=== PATIENT | female | born 1935 | race African-American/Black ===

== ENCOUNTER 2017-09-05 08:57 | Observation (INO) | payer MEDICARE, MEDICAID ==
[2017-09-05 09:13] LABS: #Basophils 0.1 thou/uL (0.0-0.2); #Eosinphils 0.3 thou/uL (0.0-0.7); #Lymphocytes 1.5 thou/uL (1.20-3.40); #Monocytes 0.7 thou/uL (0.11-0.59); %Basophils 1.2 % (0.0-1.0); %Eosinophils 3.9 % (0.0-10.0); %Lymphocytes 19.3 % (21.0-51.0); %Neutrophils 66.5 % (42.0-75.0); Hemoglobin 10.9 g/dL (12.0-16.0); Mean Corpuscular HGB CONC 31.8 g/dL (32.0-36.0); Mean Corpuscular Hemoglobin 25.6 pg (27.0-31.0); Mean Corpuscular Volume 80.4 fl (81.0-99.0); Mean Platelet Volume 8.5 fL (7.4-10.4); Platelet Count 327 thou/uL (130-400); RBC Distribution Width 14.4 % (11.5-14.5); Red Blood Cell (RBC) Count 4.28 mill/uL (4.20-5.40); White Blood Cell (WBC) Count 7.5 thou/uL (4.8-10.8)
[2017-09-05 09:36] LABS: ALT (SGPT) 11 U/L (8-55); AST (SGOT) 26 U/L (5-34); Albumin 3.9 g/dL (3.4-4.8); Alkaline Phosphatase 82 U/L (40-150); Anion Gap 10 mmol/L (10-20); BUN (Urea Nitrogen) 22 mg/dL (9.8-20.1); Bilirubin, Total 0.3 mg/dL (0.2-1.2); Calc. Creatinine Clearance 0 mL/min (70-130); Calcium 9.1 mg/dL (7.8-10.44); Carbon Dioxide 28 mmol/L (23-31); Chloride 104 mmol/L (98-107); Estimated GFR-MDRD 58; Globulin 3.7 g/dL (2.4-3.5); Glucose 91 mg/dL (83-110); Potassium 3.9 mmol/L (3.5-5.1); Protein, Total 7.6 g/dL (6.0-8.3); Sodium 138 mmol/L (136-145)
[2017-09-05 09:45] LABS: CKMB 1.2 ng/mL (0-6.6)
[2017-09-05] MEDS ORDERED: Nitroglycerin 2% Ointment 1 INCH/1 GM Packet ONE (10:23)
[2017-09-05] MEDS ORDERED: Morphine 4 MG/ML VIAL ONE (10:50)
[2017-09-05] MEDS ORDERED: ISOVUE-370 76%-LOCM 1 ML ONE (11:02)
--- NOTE | 2017-09-05 11:21 | RAD ---
CHEST 1 VIEW: Date: 09/05/17 HISTORY: Left-sided chest pain. COMPARISON: Chest radiograph dated 07/11/16. FINDINGS: Mild blunting left lateral costophrenic sulcus and right lateral costophrenic sulcus. Heart size uppe r limits of normal. There is dilatation of the pulmonary arteries. Mild tortuosity of the aorta. Dual lead pacer is in place. Lungs are slightly hyperinflated. IMPRESSION: 1. Mild blunting left lateral costophrenic sulcus likely sequelae of scarring given no significant c hange. 2. Mild pulmonary arterial hypertension. 3. Calcified granulomas. POS: [facility]
[2017-09-05] MEDS ORDERED: diphenhydrAMINE 50 MG/ML VIAL ONE (12:20)
[2017-09-05] MEDS ORDERED: methylPREDNISolone Sod Succ/PF 125 MG/2 ML VIAL ONE (12:21)
[2017-09-05] MEDS ORDERED: Famotidine/PF 20 mg/2ml Vial SLOW IVP SCH (12:30)
[2017-09-05 12:33] LABS: Troponin I 0.013 ng/mL (< 0.028)
[2017-09-05] MEDS ORDERED: Ondansetron HCl/PF 4 MG/2 ML Vial IVP PRN (14:32)
[2017-09-05] MEDS ORDERED: Ondansetron ODT 4 MG TAB SL PRN (14:32)
[2017-09-05 14:47] VITALS: BMI 21.9
--- NOTE | 2017-09-05 15:01 | CT ---
CT PULMONARY ANGIOGRAM CHEST INCLUDING 3D RENDERING: Date: 09/05/17 HISTORY: 82-year-old female with history of primarily left-sided chest pain. COMPARISON: Abdomen CT scan dated 05/09/15. FINDINGS: No significant CT evidence for acute pulmonary embolism. Mild dilatation of the right and left and ma in pulmonary arteries. Diffuse atherosclerotic changes of the aorta with three vessel coronary artery calcific disease. Linear parenchymal changes, evidence for scarring involving primarily the right up per lobe, left lower lobe, and less so the right lower lobe and right middle lobe and lingula. Eviden ce for chronic change with some minimal left lower lobe associated bronchiectasis. Postop midline kieran rnotomy and left ICD. Circumscribed linear calcific focus within the superior spleen, as well as mult iple low attenuation foci within the spleen, up to 3.4 cm in size, stable from the prior abdomen CT s can. No pleural effusion or pericardial effusion. IMPRESSION: No CT evidence for significant acute PE. Chronic lung changes bilaterally. No pleural effusion or per icardial effusion. Atherosclerotic changes of the aorta without focal aneurysm. Stable findings in th e spleen. POS: [facility]
[2017-09-05 16:25] LABS: Troponin I 0.011 ng/mL (< 0.028)
[2017-09-05] MEDS ORDERED: predniSONE 20 MG TAB PO SCH (20:15)
[2017-09-05] MEDS ORDERED: Cyclobenzaprine 10 MG TAB PO SCH (21:00)
[2017-09-05] MEDS ORDERED: Simvastatin 20 MG TAB PO SCH (21:00)
[2017-09-05] MEDS ORDERED: Prevnar 13-Val Conj/PF 0.5 ML SYRINGE IM ONE (21:00)
[2017-09-05] MEDS: HYDROcodone/Acetaminophen 10/325 mg Tablet PO PRN (22:20)
[2017-09-05] MEDS: hydrALAZINE 25 MG TAB PO SCH (22:22)
--- NOTE | 2017-09-06 00:32 | HP ---
DATE OF ADMISSION: 09/05/2017 CHIEF COMPLAINT: Chest pain. HISTORY OF PRESENT ILLNESS: This is an 82-year-old black female, patient of Dr. Suresh Doss, who c boni to the emergency room with chest pain that started about 0300 hours this morning. She describes the pain as a sharp pain on the left side of her chest that gets worse with a deep breath and goes in to her neck and shoulder. She has a significant history of heart disease with acute MIs and a pacema ker. Worked up in the ER and checked for PEs and did not find anything, so they put her in the [facility] for further workup of the chest pain. PAST MEDICAL HISTORY: Positive for atherosclerotic coronary vascular disease. She has had a third-d egree AV block, had a pacemaker. She has a history of peripheral vascular disease, hypertension, hyp erlipidemia, significant arthritis, degenerative joint disease, and degenerative disk disease. PAST SURGICAL HISTORY: She has had a CABG x5. Prior to that, she has had coronary stents more than 10 years ago. She also has a history of pacemaker. She has had a lumbar disk repair and a left hand surgery. ALLERGIES: CONTRAST DYE. MEDICATIONS: Aspirin 81 mg a day, Pletal 100 mg twice a day, Lasix 40 mg a day, hydralazine 25 mg t. i.d., [place] 10/325 q.6 hours p.r.n., lisinopril 20 mg a day, metoprolol 25 mg a day, simvastatin 20 m g a day. FAMILY HISTORY: Noncontributory. SOCIAL HISTORY: She is a , lives with her significant other. Has 4 living children. She had 1 1 children in total. She is a former smoker. She had a 15-pack history and she stopped smoking abou t 15 or 16 years ago. She denies any alcohol intake. No other illicit or toxic habits. REVIEW OF SYSTEMS: Denies any headache or visual changes. No troubles chewing or swallowing. She d oes think she might have some type of viral disease several days ago to a week ago, because she did h ave some swollen lymph nodes in the back of her neck and a runny nose. She has had [id number]-[id number] cough for a few weeks. She denies any hemoptysis. She denies any shortness of breath. It does hurt to take a deep breath. She denies any nausea or vomiting. Denies any changes in bowel or bladder h abits. No dysuria or hematuria. Denies any paresis or paresthesias. Denies any seizure activity. Denies any homicidal or suicidal ideations. Denies any auditory or visual hallucinations. PHYSICAL EXAMINATION: VITAL SIGNS: Temperature is 97.8, pulse 82, respirations 18, saturating 93% on room, blood pressure is 177/78. HEENT: Normocephalic, atraumatic cranium. Pupils are equal, round, reactive to light and accommodat ion. Extraocular movements are intact. Mucous membranes are moist. NECK: Supple. No JVD, no bruits, no thyromegaly. There are few posterior shotty lymph nodes. LUNGS: Clear to auscultation bilaterally. Anterior to left side of chest, the ribs are tender to pa lpation along the costochondral junction, as well as the sternochondral junctions. There is also sig nificant pain with inspiration. HEART: S1, S2 with no rubs, murmurs, or gallops. ABDOMEN: Soft, nontender, nondistended. GENITOURINARY: Deferred. EXTREMITIES: Good palpable pulses x4. No cyanosis, clubbing, or edema. LABORATORY AND X-RAY FINDINGS: White count 7.5, H&H are 10.9 and 34, platelets of 327,000. Chemistr ies showed sodium 138, potassium 3.9, chloride 104, bicarbonate 28, BUN is 22, creatinine is 1.1, glu cose 91. Troponins have been 0.1, 0.13, 0.11 in the 3 consecutive draws. The CK-MB was 1.2. Chest x-ray essentially was negative. CT angio was done showing no PE and no effusions. ASSESSMENT: Chest pain with a significant history of coronary artery disease. This could be possibl e severe costochondritis with little pleurisy. PLAN: I am going to start her on low-dose prednisone tonight and will see how well that goes in the morning. We will continue rest of the chest pain protocol.
[2017-09-06] MEDS: HYDROcodone/Acetaminophen 10/325 mg Tablet PO PRN ×3 (05:24→15:42)
[2017-09-06] MEDS: hydrALAZINE 25 MG TAB PO SCH ×2 (06:24→15:41)
[2017-09-06] MEDS: Cilostazol 100 MG TAB PO SCH ×2 (06:24→15:41)
[2017-09-06] MEDS ORDERED: Furosemide 40 MG TAB PO SCH (09:00)
[2017-09-06] MEDS ORDERED: Lisinopril 20 MG TAB PO SCH (09:00)
[2017-09-06] MEDS ORDERED: predniSONE 20 MG TAB PO SCH (10:00)
--- NOTE | 2017-09-06 10:25 | PRG ---
DATE OF SERVICE: 09/06/2017 SUBJECTIVE: Ms. Kaplan is resting comfortably today. She reports she is still having some chest p ain, arm pain. The patient not able to lift her arm above her head. She has significant history of atherosclerotic coronary artery disease. She is also status post pacemaker placement. She does report today that her pain is feeling better. PHYSICAL EXAMINATION: VITAL SIGNS: Blood pressure is 199/84, pulse 87, temperature 98.6. GENERAL: She is alert, active, in no distress. LUNGS: Reveal bilateral breath sounds. HEART: Reveals a regular rate and rhythm without murmur, gallops or rubs. LABORATORY DATA: Cardiac enzymes are negative x3. IMAGING: Review of CT scan of the chest shows no evidence of acute findings on CT scan of the chest. IMPRESSION: Left-sided chest pain of unknown etiology certainly appearing musculoskeletal. PLAN: I would like to have Cardiology look at her today to see if there is any further workup that w ill include or whether they will continue on the current prednisone that she is taking. If she is stable, she might be able to be discharged later today.
[2017-09-06 11:30] VITALS: BP 173/81; TEMP 98.4
--- NOTE | 2017-09-06 13:01 | CON ---
DATE OF CONSULTATION: 09/06/2017 PRIMARY CARE PHYSICIAN: Dr. Suresh Doss EXTRACTOR PLANT OPERATOR: Dr. April Marcelo REFERRING DOCTOR: Dr. Michael Dobson REASON FOR CARDIOLOGY CONSULTATION: Chest pain, previous history of CABG and pacemaker placement. HISTORY: Ms. Kaplan is a very pleasant 81year- old female with a significant hist ory of hypertension and pacemaker placement, coronary artery disease with a CABG x5 in 2006. An ex-s moker. The patient presented to the emergency department for severe chest pain. The patient has a h istory of bronchitis and worsening of allergies since last week with continuous severe cough last wee k. Yesterday, she noticed that she cannot take a deep breath because of the coughing and the pain to the left chest which radiated to the left side of that lateral side on the left torso and the left s houlder to the left forearm. She described the pain as sharp and increases when she moves or takes a deep breath. If she does move she has normal breathing. She does not have any pain at the site exc ept the left shoulder. She denies dizziness, lightheadedness, nausea, vomiting or any other cardiac complaints during that episode. Her troponin level has been within the normal range. A 12-lead EKG has not shown any ST segment change or T-wave inversion. She has chronic, but intermittent abdomen a nd back pain for 25 years. A couple of weeks ago, she noticed ____ knot to the lower abdomen, which was not seen today, but however, she did not seek any professional health care otherwise at that time because she has had several tests for the symptom with abdominal pain for a couple of years; however , they have not found any abnormality seen. Patient has a history of coronary artery disease with CABG x5 in 01/2007. The catheterization in 2015 shows EF of 40%, diffuse diseased vessel in the RCA, sequential 80% lesion in the RCA, 100% occl uded after first diagonal, 90% occlusion in the first diagonal and MORELOS to LAD is patent, intermitten t ramus occlude and sequential 90% lesion in the circumflex and 100% occluded in the OM1 and patent g raft of the SVG to IR and SVG to OM, 100% occlusion in the SVG to RCA and SVG to diagonal. The patie nt had a pacemaker placement in 2015. Last pacemaker interrogation was done in 09/2016 show normal 3 fold impedance programmed DDDR. Last echocardiogram was done in 2016, which shows EF of 40-45%, mod erate aortic valve insufficiency, moderate mitral valve regurgitation, moderate tricuspid regurgitati on, pulmonary hypertension with a right ventricular systolic pressure in the 52 mmHg plus SVT. PAST MEDICAL HISTORY: 1. Coronary artery disease with a CABG x5, but no stent. 2. Hypertension. 3. Pacemaker placement for third-degree AV block. 4. Hyperlipidemia. 5. Chronic back pain with a significant degenerative joint disease. PAST SURGICAL HISTORY: CABG x5 in 2006, pacemaker placement in 2016. Lumbar surgery, left hand surg maria de jesus, and carpal tunnel repair to the left wrist and the right femoral popliteal bypass. FAMILY HISTORY: The patient's mother has a history of diabetes and disease due to the breast cancer, the patient's sister has a history of heart disease. One of the patient's sister due to ov boubacar cancer. The patient's son had a stroke last year. Father's history is unknown. SOCIAL HISTORY: She is a and she lives with her significant others. She had 11 children total , but only 3 children, lives at this moment. The patient is an ex-smoker. She quit in 1999. She de nied any alcohol or illicit drug abuse. ALLERGIES: She IODINE. REVIEW OF SYSTEMS: The patient's review of systems negative, unless otherwise mentioned in the HPI o r below. CONSTITUTIONAL: The patient was alert, oriented x4. Negative weight gain or loss, fever. EYES: Negative vision change, double vision. ENT: Negative for hearing loss, dysphagia, lost appetite or dental difficulty, dentures, obstruction or nasal bleeding. RESPIRATORY: Negative for snoring and hemoptysis, but positive for chronic cough. CARDIOVASCULAR: Negative for diaphoresis, orthopnea, palpitations, syncope. GASTROINTESTINAL: The patient negative for nausea, reflux, bleeding or abnormal bowels, constipation or diarrhea. GENITOURINARY: Negative hematuria. No nocturia, unusual color of urine. MUSCULOSKELETAL: Negative for claudication, edema. NEUROLOGIC: Negative for dizziness, memory loss, or seizure. PSYCHIATRIC: Negative for depression or hallucinations. SKIN: No rash or bruise. MUSCULOSKELETAL: Positive for joint pain, myalgia. PHYSICAL EXAMINATION: VITAL SIGNS: Blood pressure was 167/75, pulse is 81 intermediate A pacing with PVCs or PACs, heart r ate 70s-90s, temperature 98.3, respiration rate 16, O2 sats 94-96% on room air. GENERAL: The patient is alert, oriented x4, in no acute distress. HEAD: Normocephalic, atraumatic. EYES: Extraocular muscle movement intact. ENT: Oral and nasal mucosa are moist without lesion. NECK: Supple and no JVD, normal range of motion. LUNGS: Clear to auscultation bilaterally, but diminished at the bases. CARDIOVASCULAR: Irregularly irregular, normal S1, S2. There are no S3 or S4, no rubs or murmurs not ed. ABDOMEN: Soft and nontender or mass palpated. EXTREMITIES: Able to move all extremities and there are 2+ pulses in the bilateral lower extremities . No cyanosis, clubbing, edema noted. SKIN: No rash, bruise or lesion noted. ASSESSMENT AND PLAN: 1. Atypical chest pain. The patient's troponin level is within the normal range. The patient's 12 lead EKG showed no ST segment change or T-wave inversion. The patient reports that the chest pain, i ncreased with movement or cough, but no chest pain without movement. She also said the pain medicati on improved with her chest pain. We would like to continue to monitor. However, I believe she does not need any further cardiac workup at this moment. I would like to discuss with Dr. Marcelo for the ivan vo's further evaluation. 2. Hypertension. The patient's blood pressure has been elevated during this admission. The patient 's metoprolol was increased from 25 to 50 mg once a day to manage blood pressure. We would like to c john to monitor. 3. Coronary artery disease with a history of a CABG x5 in 2006. The patient's condition is stable a t this moment, we would like to continue to monitor. 4. Pacemaker placement in 2015. Last interrogation in October 2016 showing normal result, we would lik e to continue to monitor on the telemetry. 5. Hyperlipidemia. The patient on the study at this moment, we would like to continue. 6. Chronic cough due to the bronchitis. She is on the prednisone at this moment, which is managed b y the patient's primary care doctor. Thank you for allowing the Cardiology Service to participate in the care of this patient. We will fo llow along with the patient's care team and make recommendations as appropriate.
--- NOTE | 2017-09-06 13:22 | PRG ---
DATE OF SERVICE: 09/06/2017 Ms. Kaplan was admitted yesterday due to some chest pain. She has previous history of atherosclero tic coronary disease as well as pacemaker. During her hospitalization, her troponins have remained n ormal. She reports that her chest pain is reproduced by lifting her left arm above her head. She aviles s not noted any significant coughing today, although she noted a cough a few days ago. PHYSICAL EXAMINATION: VITAL SIGNS: Temperature 98.4, BP 173/81. LUNGS: Clear. HEART: Reveals no murmur at this time. EXTREMITIES: No clubbing, edema or cyanosis. LABORATORY DATA: Hemoglobin is 10.9, hematocrit 34.4. Troponins are negative x3. EKG shows no evid ence of any acute ST segment T-wave changes associated with injury. Chest x-ray, CT angio of the farrah st was normal. IMPRESSION: This patient appears to have atypical chest pain. She has been seen by the nurse abundio mckeon in Cardiology. I feel like she can be discharged home on her home medicines. We will wait fo r Cardiology to get final discharge recommendations.
--- NOTE | 2017-09-06 14:07 | ER ---
DATE OF CONSULTATION: 09/06/2017 INDICATION FOR CONSULTATION: An 81-year-old female with history of known coronary artery disease, st atus post bypass surgery with recent pneumonia, bronchitis with chest pain, somewhat atypical. We we re asked to see her for her chest discomfort. Please refer the notes already dictated by the nurse kimo Wallace. We have discussed the patient, I reviewed the records and would agree with her as sessment and plan. This is a very pleasant 82-year-old female who has undergone bypass surgery in the past. She underwe nt a cardiac catheterization last year and was found to have one graft occluded, but the other grafts remain patent. She had a totally occluded right coronary graft and I believe the right coronary art maria de jesus was also subtotal if not completely occluded. Other than that she has been doing quite well from the bypass and she has not been having any recent chest discomfort. She was seen in the office last year, 09/2016 and she has had no chest pain at that time. She did have a pacemaker put in also in t he past and at the time of the last pacemaker evaluation, the pacemaker check was normal. She was pa cing in the ventricle less than 10% of the time and in also in the atrium about 10% of the time and s he has had a few episodes of high atrial rate. Otherwise, she has been doing quite well. At this ti me she presented with this atypical chest pain after she had bouts of coughing. Her EKG is unremarka ble for any acute evidence of ischemia. Her cardiac enzymes are unremarkable. It is felt that this is a noncardiac chest discomfort and specifically it did improve after she has been given some medica l management. She said the pain was present. every time she had a deep breath, otherwise she did no t have any significant discomfort. She has been given muscle relaxants, steroids and hydrocodone for the discomfort and she seems to be in very good control when she takes a deep breath at this time. As far as cardiac, it does not appear to be cardiac in nature. PAST MEDICAL HISTORY/SOCIAL HISTORY/REVIEW OF SYSTEMS/ MEDICATIONS/ALLERGIES: Please refer the notes already dictated by the nurse practitioner. PHYSICAL EXAMINATION: GENERAL: Reveals a very pleasant, elderly female who is in no acute distress. VITAL SIGNS: Blood pressure is elevated 167/75. She is afebrile, respiratory rate 16, heart rate is 80 and regular. HEENT: Shows the head to be normocephalic, atraumatic. Carotid pulses are present. NECK: There were no significant bruits. CHEST: Clear to auscultation. There were no rales, rhonchi or wheezing that I can determine at this time. CARDIOVASCULAR: Reveals a regular rate and rhythm, normal S1, S2. There were no significant murmurs , heaves, thrills or rubs. She does have bilateral femoral bruits noted and she does have decreased popliteal and pedal pulses. ABDOMEN: Soft and nontender. Positive bowel sounds are present. EXTREMITIES: Show no clubbing, cyanosis or edema. Pedal pulses are present. She has well-healed mi dline surgical incision after median sternotomy. NEUROLOGIC: She appears to be intact. She does have evidence of arthritis. IMPRESSION: 1. Atypical chest pain in a female who has history of known coronary artery disease, but this appear s to be stable at this time. 2. Recent bronchitis. She will need medications to continue for her coughing, most likely the stero ids and antibiotics will be helpful as well as the muscle relaxants. 3. Otherwise, from a cardiac standpoint, she does have dyslipidemia and she will continue her medica tions. 4. She has hypertension. We may need to address her medications. This can be dealt with as an outp atient. 5. She also has a history of peripheral vascular disease and has undergone vascular evaluations in t he past, but this appears to be stable. I would be more than happy to continue to follow the patient with you, but at this time from a cardia c standpoint, she appears to be stable. I have reviewed her medications and I would continue presen t medications at this time. From a cardiac standpoint, the patient could be discharged home and I will see her back in the office in the next few weeks.
== END 2017-09-06 15:52 | disposition home or self-care (01) ==
LOC: ERS 08:57 → 2SW 14:26
PROVIDERS: ADMIT Family Medicine; ATTEND Family Medicine
DX: R07.89 Other chest pain (principal); I25.2 Old myocardial infarction; I25.10 Atherosclerotic heart disease of native coronary artery without angina pectoris; I44.2 Atrioventricular block, complete; I73.9 Peripheral vascular disease, unspecified; I10 Essential (primary) hypertension; E78.5 Hyperlipidemia, unspecified; M19.90 Unspecified osteoarthritis, unspecified site; J40 Bronchitis, not specified as acute or chronic; Z87.891 Personal history of nicotine dependence; Z79.82 Long term (current) use of aspirin; Z79.899 Other long term (current) drug therapy; Z91.041 Radiographic dye allergy status; Z95.1 Presence of aortocoronary bypass graft; Z95.0 Presence of cardiac pacemaker
CPT/HCPCS: 71045; 71275; 80053; 82550; 82553; 84484 ×2; 85025; 90670; 93005; 96374; 96375; 99285; G0009; G0378; 36415; 90471; J1200; J2270; J2930; J7506; S0028

== ENCOUNTER 2018-01-22 08:24 | Outpatient (CLI) | payer MEDICARE, MEDICAID ==
--- NOTE | 2018-01-22 10:24 | CT ---
CT ABDOMEN AND PELVIS PERFOREMD WITH INTRAVENOUS CONTRAST ENHANCEMENT: HISTORY: Lower abdominal pain. Weight loss. Evaluation for diverticulitis. COMPARISON: Study from 01/02/2013. Review is also made of a 05/09/2015 exam. FINDINGS: ABDOMEN: The lung bases show some chronic, more emphysematous type change. Postop sternotomy change s are noted. The liver shows no focal abnormalities. The spleen is stable in appearance with a dense calcificatio n and multiple cystic appearing lesions. The pancreas is atrophic. The gallbladder is normal in sage earance. The right and left adrenal glands are normal. The right and left kidneys are normal in size and not obstructed. Fairly extensive vascular calcification associated with both kidneys. I believe all the calcifications are related to vascular rather than being renal calculi. There is no significant per iaortic or mesenteric adenopathy. PELVIS: There is colonic diverticulosis. This is most severe in the descending and sigmoid colon re gion. I do not see any definite inflammatory process. There is no significant pelvic lymphadenopath y or mass. Postoperative changes of the spine are present. Fairly extensive vascular calcifications are noted. IMPRESSION: 1. Moderately severe diverticulosis of the descending and sigmoid colon, without definite signs of d iverticulitis. 2. Extensive vascular calcification. 3. Overall, fairly stable examination as compared to the prior study. POS: [facility]
[2018-01-22] MEDS ORDERED: Iopamidol 370 76% 100 ML VIAL ONE (12:51)
== END 2018-01-22 08:25 | disposition home or self-care (01) ==
LOC: CT 08:24
PROVIDERS: ATTEND Family Medicine
DX: K57.92 Diverticulitis of intestine, part unspecified, without perforation or abscess without bleeding (principal); K57.30 Diverticulosis of large intestine without perforation or abscess without bleeding; N28.89 Other specified disorders of kidney and ureter
CPT/HCPCS: 74177

== ENCOUNTER 2018-09-03 11:40 | Emergency (ER) | payer MEDICARE, MEDICAID ==
[2018-09-03] MEDS ORDERED: ISOVUE-370 76%-LOCM 1 ML ONE (11:47)
[2018-09-03 13:05] LABS: #Basophils 0.1 thou/uL (0.0-0.2); #Eosinphils 0.1 thou/uL (0.0-0.7); #Lymphocytes 1.5 thou/uL (1.20-3.40); #Monocytes 0.5 thou/uL (0.11-0.59); %Basophils 1.3 % (0.0-1.0); %Eosinophils 1.9 % (0.0-10.0); %Lymphocytes 29.2 % (21.0-51.0); %Monocytes 9.4 % (0.0-10.0); %Neutrophils 58.1 % (42.0-75.0); Hemoglobin 11.7 g/dL (12.0-16.0); Mean Corpuscular HGB CONC 32.6 g/dL (32.0-36.0); Mean Corpuscular Hemoglobin 26.1 pg (27.0-31.0); Mean Platelet Volume 8.2 fL (7.4-10.4); Platelet Count 279 thou/uL (130-400); RBC Distribution Width 13.4 % (11.5-14.5); Red Blood Cell (RBC) Count 4.48 mill/uL (4.20-5.40); White Blood Cell (WBC) Count 5.2 thou/uL (4.8-10.8)
[2018-09-03 13:27] LABS: ALT (SGPT) 15 U/L (8-55); AST (SGOT) 21 U/L (5-34); Albumin 4.3 g/dL (3.4-4.8); Alkaline Phosphatase 78 U/L (40-150); Anion Gap 13 mmol/L (10-20); BUN (Urea Nitrogen) 19 mg/dL (9.8-20.1); Bilirubin, Total 0.6 mg/dL (0.2-1.2); Calc. Creatinine Clearance 0 mL/min (70-130); Calcium 9.9 mg/dL (7.8-10.44); Carbon Dioxide 26 mmol/L (23-31); Chloride 105 mmol/L (98-107); Estimated GFR-MDRD 48; Globulin 3.3 g/dL (2.4-3.5); Glucose 86 mg/dL (83-110); Potassium 3.4 mmol/L (3.5-5.1); Protein, Total 7.6 g/dL (6.0-8.3); Sodium 141 mmol/L (136-145)
[2018-09-03] MEDS ORDERED: diphenhydrAMINE 50 MG/ML VIAL ONE (14:36)
[2018-09-03] MEDS ORDERED: Famotidine/PF 20 mg/2ml Vial ONE (14:36)
[2018-09-03] MEDS ORDERED: methylPREDNISolone Sod Succ/PF 125 MG/2 ML VIAL ONE (14:36)
[2018-09-03 14:53] LABS: Bilirubin Small (Negative); Blood, Urine Negative (Negative); Clarity CLEAR (Clear); Glucose, Urine (Dipstick) Negative (Negative); Leukocyte Small (Negative); Nitrite Negative (Negative); Protein, Urine (Dipstick) Negative (Neg-Trace); Specific Gravity, Urine 1.026 (1.002-1.036); pH, Urine 5.5 (5.0-9.0)
[2018-09-03 14:54] LABS: Bacteria/HPF 1+ HPF (None Seen); RBC/HPF 0-3 HPF (0-3)
[2018-09-03 14:58] LABS: Pathc Cast-AUWi Flag 2.99 (0-2.49)
[2018-09-03 15:06] LABS: Hyaline Casts/LPF 0-3 HYALINE CAST LPF (0-3 Hyaline); Other Casts/LPF None Seen LPF (0-3 Hyaline)
[2018-09-03] MEDS ORDERED: Labetalol HCl 100 MG/20 ML VIAL ONE (16:18)
--- NOTE | 2018-09-03 17:40 | CT ---
Contrast-enhanced images abdomen pelvis. HISTORY: Right-sided abdominal and groin pain. The patient is been having pain for 10 to 11 years and now presents to the emergency room department for evaluation. Contrast-enhanced images of the abdomen pelvis demonstrate the lung bases to be unremarkable. No evid ence of free intraperitoneal air seen. Numerous mid and lower lumbar surgical hardware is placed in the lumbar spine. The liver is unremarkable. The gallbladder is within normal limits. Atherosclerotic calcination seen in the aorta SMA and celiac arteries. Bilateral renal artery calcifi cations also seen. The spleen contains cysts and calcifications. The pancreas is atrophied. The small bowel is unremarkable. Extensive descending and sigmoid colonic diverticulosis is present. Atherosclerotic calcination seen in the common femoral artery and superficial femoral arteries. IMPRESSION: Extensive lumbar spine surgical changes.
== END 2018-09-03 18:19 | disposition home or self-care (01) ==
LOC: EDBD → ERS 11:40 → MERGE 11:40 → ERS 18:19
DX: K59.00 Constipation, unspecified (principal); E78.5 Hyperlipidemia, unspecified; I10 Essential (primary) hypertension; J44.9 Chronic obstructive pulmonary disease, unspecified; Z79.899 Other long term (current) drug therapy
CPT/HCPCS: 36415; 74177; 80053; 81003; 81015; 83690; 85025; 87086; 96374; 96375; J1200; J2930; Q9966; S0028

== ENCOUNTER 2018-09-26 12:28 | Emergency (ER) | payer MEDICARE, OTHER ==
--- NOTE | 2018-09-26 13:53 | RAD ---
EXAM: Single view of the chest HISTORY: Cough and shortness of breath COMPARISON: 09/05/2017 FINDINGS: Single view of the chest shows an enlarged but stable cardiomediastinal silhouette. The pa cemaker is unchanged in position. The patient is status post sternotomy. There is no evidence of consolidation, mass, or pleural effusion. The bones are unremarkable. IMPRESSION: No evidence of acute cardiopulmonary disease
[2018-09-26 14:05] LABS: #Eosinphils 0.1 thou/uL (0.0-0.7); #Lymphocytes 1.2 thou/uL (1.20-3.40); #Monocytes 0.7 thou/uL (0.11-0.59); #Neutrophils 3.5 thou/uL (1.40-6.50); %Basophils 0.7 % (0.0-1.0); %Eosinophils 2.3 % (0.0-10.0); %Lymphocytes 21.7 % (21.0-51.0); %Monocytes 12.1 % (0.0-10.0); %Neutrophils 63.2 % (42.0-75.0); Hemoglobin 9.8 g/dL (12.0-16.0); Mean Corpuscular HGB CONC 31.9 g/dL (32.0-36.0); Mean Corpuscular Hemoglobin 26.1 pg (27.0-31.0); Mean Corpuscular Volume 81.8 fL (78.0-98.0); Mean Platelet Volume 8.1 fL (7.4-10.4); Platelet Count 258 thou/uL (130-400); RBC Distribution Width 13.8 % (11.5-14.5); Red Blood Cell (RBC) Count 3.76 mill/uL (4.20-5.40); White Blood Cell (WBC) Count 5.5 thou/uL (4.8-10.8)
[2018-09-26 14:11] LABS: Albumin 3.7 g/dL (3.4-4.8)
[2018-09-26 14:12] LABS: Chloride 105 mmol/L (98-107); Sodium 139 mmol/L (136-145)
[2018-09-26 14:13] LABS: Calcium 8.6 mg/dL (7.8-10.44)
[2018-09-26 14:14] LABS: Globulin 2.7 g/dL (2.4-3.5); Glucose 89 mg/dL (83-110); Protein, Total 6.4 g/dL (6.0-8.3)
[2018-09-26 14:15] LABS: Anion Gap 16 mmol/L (10-20); Bilirubin, Total 0.5 mg/dL (0.2-1.2); Carbon Dioxide 21 mmol/L (23-31)
[2018-09-26 14:16] LABS: Alkaline Phosphatase 63 U/L (40-150)
[2018-09-26 14:17] LABS: Calc. Creatinine Clearance 0 mL/min (70-130); Estimated GFR-MDRD 54
[2018-09-26 14:18] LABS: BUN (Urea Nitrogen) 20 mg/dL (9.8-20.1)
[2018-09-26 14:19] LABS: AST (SGOT) 19 U/L (5-34)
[2018-09-26 14:20] LABS: ALT (SGPT) 11 U/L (8-55)
[2018-09-26] MEDS ORDERED: Potassium Chloride 20 MEQ TAB ONE (14:52)
[2018-09-26] MEDS ORDERED: HYDROcodone/Acetaminophen 5/325 mg Tablet ONE (15:09)
== END 2018-09-26 15:20 | disposition home or self-care (01) ==
LOC: ERS 12:28
DX: E87.6 Hypokalemia (principal); R68.84 Jaw pain; E78.5 Hyperlipidemia, unspecified; J44.9 Chronic obstructive pulmonary disease, unspecified; Z79.899 Other long term (current) drug therapy; Z79.82 Long term (current) use of aspirin
CPT/HCPCS: 36415; 71045; 80053; 85025; 93005; 94760

== ENCOUNTER 2018-11-12 19:16 | Inpatient (IN) | payer MEDICARE, MEDICAID ==
[~2018-11-12 19:16] MED LIST: ISOVUE-370 76%-LOCM 1 ML ONE
[2018-11-12] MEDS ORDERED: Famotidine/PF 20 mg/2ml Vial ONE (19:43)
[2018-11-12] MEDS ORDERED: diphenhydrAMINE 50 MG/ML VIAL ONE (19:43)
[2018-11-12] MEDS ORDERED: methylPREDNISolone Sod Succ/PF 125 MG/2 ML VIAL ONE (19:43)
[2018-11-12 20:04] LABS: Hemoglobin 11.2 g/dL (12.0-16.0); Mean Corpuscular Hemoglobin 26.1 pg (27.0-31.0); Mean Corpuscular Volume 81.8 fL (78.0-98.0); Platelet Count 291 thou/uL (130-400); RBC Distribution Width 13.8 % (11.5-14.5); Red Blood Cell (RBC) Count 4.27 mill/uL (4.20-5.40); White Blood Cell (WBC) Count 4.6 thou/uL (4.8-10.8)
[2018-11-12] MEDS ORDERED: Labetalol HCl 100 MG/20 ML VIAL ONE (20:06)
--- NOTE | 2018-11-12 20:09 | CT ---
NONCONTRAST CT HEAD: 11/12/18 HISTORY: Level I stroke alert. Expressive aphasia. COMPARISON: Not available. FINDINGS: There are scattered low density areas within the periventricular white matter which are nonspecific b ut likely reflective of mild chronic small vessel ischemic changes. There is no evidence of an acute cortical infarction, hemorrhage, mass effect or midline shift. The ventricular system is normal in si ze, shape and position. Mild cerebral volume loss is present not unexpected for the patient's age. The visualized paranasal sinuses and mastoid air cells are clear. Calvarial structures have normal ap pearance. IMPRESSION: 1. No acute intracranial abnormalities demonstrated. 2. Mild chronic small vessel ischemic changes. 3. Above findings discussed with Dr. Walsh in the Emergency Department on 11/12/18 at 1952 hour s. POS: [facility]
[2018-11-12 20:10] LABS: PTT 32.3 SEC (22.9-36.1)
[2018-11-12 20:22] LABS: ALT (SGPT) Less than 7 U/L (8-55); AST (SGOT) 15 U/L (5-34); Albumin 3.8 g/dL (3.4-4.8); Alkaline Phosphatase 98 U/L (40-150); Anion Gap 14 mmol/L (10-20); BUN (Urea Nitrogen) 25 mg/dL (9.8-20.1); Bilirubin, Total 0.3 mg/dL (0.2-1.2); Calc. Creatinine Clearance 0 mL/min (70-130); Calcium 9.4 mg/dL (7.8-10.44); Carbon Dioxide 25 mmol/L (23-31); Chloride 103 mmol/L (98-107); Estimated GFR-MDRD 45; Globulin 3.3 g/dL (2.4-3.5); Glucose 106 mg/dL (83-110); Potassium 3.1 mmol/L (3.5-5.1); Protein, Total 7.1 g/dL (6.0-8.3); Sodium 139 mmol/L (136-145)
[2018-11-12 20:23] LABS: CKMB 1.3 ng/mL (0-6.6); Troponin I Less than 0.010 ng/mL (< 0.028)
[2018-11-12 20:26] LABS: Band 1 % (5-11); Eosinophils 4 % (0-10); Hypochromia SLIGHT = 6-15 cells (100X) (0-5/hpf); Lymphocytes 32 % (21-51); MDiff Complete? YES; Monocytes 7 % (0-10); Neutrophil 54 % (42-75); Platelet Morphology Comment Appears Adequate
--- NOTE | 2018-11-12 20:39 | CT ---
CT ANGIOGRAM BRAIN WITH IV CONTRAST AND 3D RECONSTRUCTIONS CT ANGIOGRAM NECK WITH IV CONTRAST AND 3D RECONSTRUCTIONS: 11/12/18 HISTORY: Expressive aphasia, level I stroke alert. FINDINGS: Vascular calcifications and atherosclerotic plaque is seen in the aortic arch. There is a normal arra ngement of the great vessels which are patent with mild atherosclerotic calcifications present. Vascu lar calcifications are seen in the subclavian arteries bilaterally. There is an area of focal mild na rrowing involving the left subclavian artery distal to the takeoff of the vertebral artery. Subclavia n arteries are otherwise patent. The innominate artery as well as bilateral common carotid arteries are patent. Atherosclerotic vascular calcifications are seen at the carotid artery bifurcations bilaterally, but the bilateral internal carotid arteries are patent without significant stenosis present. However, the re are prominent vascular calcifications involving the internal carotid arteries at the level of the carotid siphons which limits adequate evaluation of the arteries in this region, but the arteries in the carotid siphon overall appear patent. There is mild narrowing at the origin of the right vertebral artery. Vertebral arteries are otherwise codominant and patent. There is suggestion of very short segment fenestration involving the proximal basilar artery. The bas ilar otherwise appears patent. The bilateral posterior cerebral arteries are patent. The bilateral middle cerebral and anterior cerebral arteries are patent. No aneurysm is seen within the limitations of the technique of this examination. The bilateral parotid glands and submandibular glands as well as thyroid gland have a normal CT appea steph. Prevertebral soft tissues have a normal appearance. Multilevel degenerative changes are seen in the cervical spine. There is fusion of the C5 and C6 vert ebral bodies. Postsurgical changes related to median sternotomy are partially imaged. A dual lead lef t subclavian cardiac pacemaking device is noted in place. There are mild ground glass densities as well as linear densities in the upper lobes bilaterally, lik ju[place] related to combination of atelectasis and scarring with calcifications seen in the right lung ape x. Slightly asymmetric pleural and parenchymal scarring at the right lung apex compared to the left. IMPRESSION: 1. Mild atherosclerotic calcifications at the carotid artery bifurcations, but there is no signi ficant stenosis involving the bilateral internal carotid arteries. 2. Mild narrowing involving the proximal right vertebral artery, but the vertebral arteries are otherwise patent. 3. Small short segment fenestration in the basilar artery, but the basilar artery is patent. 4. No focal stenosis or branch occlusion is seen involving the [place] or vertebrobasil ar system. 5. No aneurysm is seen within the limitations of the technique of this exam. 6. Mild focal area of narrowing involving the left subclavian artery. 7. Above findings discussed with Dr. Walsh in the Emergency Department on 11/12/18 at 2019 hour s. POS: SAM
[2018-11-12] MEDS ORDERED: Potassium Chloride 20 MEQ/100 ML PREMIX BAG ONE (20:44)
[2018-11-12] MEDS ORDERED: Ondansetron PF 4 MG/2 ML Vial IVP PRN (22:56)
[2018-11-12] MEDS ORDERED: Senokot S 8.6-50 MG TAB PO PRN (22:56)
[2018-11-12] MEDS ORDERED: Acetaminophen 325 MG TAB PO PRN (22:56)
[2018-11-12] MEDS ORDERED: Meloxicam 7.5 MG TAB PO PRN (23:02)
[2018-11-13] MEDS ORDERED: hydrALAZINE 25 MG TAB PO SCH (00:15)
[2018-11-13] MEDS ORDERED: Carvedilol 25 MG TAB PO SCH (00:15)
[2018-11-13 02:04] LABS: Band 4 % (5-11); Hemoglobin 10.8 g/dL (12.0-16.0); Lymphocytes 19 % (21-51); MDiff Complete? YES; Mean Corpuscular HGB CONC 31.8 g/dL (32.0-36.0); Mean Corpuscular Hemoglobin 25.9 pg (27.0-31.0); Mean Corpuscular Volume 81.5 fL (78.0-98.0); Mean Platelet Volume 7.9 fL (7.4-10.4); Monocytes 1 % (0-10); Neutrophil 76 % (42-75); Platelet Count 272 thou/uL (130-400); Platelet Morphology Comment Appears Adequate; RBC Distribution Width 13.9 % (11.5-14.5); Red Blood Cell (RBC) Count 4.16 mill/uL (4.20-5.40); White Blood Cell (WBC) Count 4.8 thou/uL (4.8-10.8)
[2018-11-13 02:37] LABS: Anion Gap 14 mmol/L (10-20); BUN (Urea Nitrogen) 23 mg/dL (9.8-20.1); Calc. Creatinine Clearance 39 mL/min (70-130); Calcium 9.2 mg/dL (7.8-10.44); Carbon Dioxide 23 mmol/L (23-31); Cardiac Risk 2.1 (Less than 4.5); Chloride 105 mmol/L (98-107); Cholesterol 115 mg/dl (< 200 Desired); Estimated GFR-MDRD 54; Glucose 151 mg/dL (83-110); HDL Cholesterol 55 mg/dL (>60 Neg Risk); LDL Cholesterol, Calculated 55 mg/dL; Potassium 3.7 mmol/L (3.5-5.1); Sodium 138 mmol/L (136-145); Triglycerides 26 mg/dL (Less than 150)
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
[2018-11-13] MEDS ORDERED: Sodium Chloride 0.9% 1,000 ML IV SCH (08:00)
[2018-11-13] MEDS: Cilostazol 100 MG TAB PO SCH ×3 (08:58→20:23)
[2018-11-13] MEDS: Carvedilol 25 MG TAB PO SCH ×2 (08:58→20:26)
[2018-11-13] MEDS: hydrALAZINE 25 MG TAB PO SCH ×3 (08:59→20:25)
[2018-11-13] MEDS: Furosemide 40 MG TAB PO SCH (08:59)
[2018-11-13] MEDS ORDERED: Aspirin 300 MG Suppository PR SCH (09:00)
[2018-11-13] MEDS ORDERED: Aspirin Chewable 81 MG TAB PO SCH ×2 (09:00)
[2018-11-13] MEDS: Enoxaparin Sodium 80 MG/0.8 ML SYRINGE SC SCH ×2 (10:07→20:22)
[2018-11-13] MEDS: Famotidine/PF 20 mg/2ml Vial SLOW IVP SCH ×2 (10:08→20:22)
--- NOTE | 2018-11-13 10:35 | PRG ---
DATE OF SERVICE: 11/13/2018 SUBJECTIVE: Ms. Kaplan is lying in bed. She has no medical complaints. She feels like she is talking better. She reports no headache, no chest pain, and no shortness of breath. OBJECTIVE: VITAL SIGNS: BP is 195/78 and temperature 98.2. GENERAL: She is alert, active, in no distress. LUNGS: Clear. HEART: Reveals regular rate and rhythm without murmurs, gallops, or rubs. NEUROLOGIC: She is able to speak fairly clearly. There may be some slight stuttering of her speech today. DIAGNOSTIC DATA: Review of her CT scan, CT [place] angiography did reveal some atherosclerotic changes in carotid artery bifurcations, but no specific stenosis otherwise noted. IMPRESSION: 1. Transient ischemic attack, probable stroke syndrome. 2. History of atherosclerotic coronary artery disease. 3. Hypertension. PLAN: 1. The patient will get consults from Dr. Marcelo and Dr. Boone as well as Neurology. I doubt she qualifies for any type of cerebrovascular surgery since Dr. Boone done previous bypass surgery on her. 2. Probably, we cannot further visualize her due to previous pacemaker. We will have Dr. Marcelo interrogate her pacemaker to see if there are any other issues. 3. Neurological consult. 4. Close observation. Continue Lovenox at this time. Job ID: [id number]
[2018-11-13] MEDS ORDERED: Acetaminophen 650 MG Suppository PR PRN (12:01)
--- NOTE | 2018-11-13 14:25 | CON ---
DATE OF CONSULTATION: HISTORY OF PRESENT ILLNESS: This is an 83-year-old female with a history of vascular disease, who presented yesterday with expressive aphasia that has improved somewhat during the hospitalization. She had a CT scan that demonstrated mild cervical internal carotid artery disease bilaterally, but extensive intracranial internal carotid artery disease bilaterally with heavy calcification and stenosis. The patient's risk factors include dyslipidemia, hypertension, and a remote smoking history, but none in 20 years. PAST SURGICAL HISTORY: Includes previous coronary artery bypass grafting in 2006 with prior cardiac stenting before that. She has also had a right femoral popliteal bypass done in [place] many years ago. She has had previous pacemaker and carpal tunnel. MEDICATIONS: Include, 1. Aspirin. 2. Pletal. 3. Hydralazine. 4. Lasix. 5. Simvastatin. 6. Norvasc. 7. Coreg. ALLERGIES: TO IODINE. PHYSICAL EXAMINATION: GENERAL: On examination, she is alert, cooperative lady, who is able to carry on a conversation, but occasionally has difficulty with expressing herself. NECK: No carotid bruits. LUNGS: Clear to auscultation. CARDIAC: Regular rhythm. ABDOMEN: Mild lower abdominal tenderness. EXTREMITIES: She has palpable femoral pulses bilaterally as well as a right popliteal pulse. PLAN: At this time, the patient has intracranial carotid artery disease not amenable to any sort of percutaneous intervention, and at this time, would recommend dual antiplatelet therapy with aspirin and Plavix. I have discussed this with her. Job ID: [id number]
[2018-11-13] MEDS: HYDROcodone/Acetaminophen 7.5/325 mg Tablet PO PRN (14:43)
--- NOTE | 2018-11-13 14:48 | RAD ---
Modified barium swallow HISTORY: Dysphagia. Feeding difficulties. Fluoroscopy time 1.1 minutes. FINDINGS: Exam was performed in conjunction with speech pathology with multiple consistencies. Video review is available and demonstrates good bolus formation and retropulsion. Minimal penetration upon initial thin liquid swallowing with spoon. No manuel aspiration. A 12 mm barium tablet traversed without holdup. Early swallow also shows extension of contrast to the posterior sublingual tissues. Possibly within a small granuloma. Congenital versus prior infection? No significant residua. The esophagus below the level of the hypopharynx was not evaluated. Please see separate detailed repo rt from speech pathology.
--- NOTE | 2018-11-13 17:01 | CON ---
DATE OF CONSULTATION: 11/13/2018 CONSULTING PHYSICIAN: Hospitalist Service. IMPRESSION: 1. Transient ischemic attack with transient expressive aphasia. 2. Intracranial internal carotid stenosis that is not amenable to surgical intervention. 3. Normal ejection fraction. 4. Hypertension. 5. Hyperlipidemia. 6. Aspirin failure. PLAN: 1. Add Plavix 75 mg per day. 2. The patient will be discharged home. HISTORY OF PRESENT ILLNESS: Ms. Awad is an 83-year-old black female, who presented with expressive aphasia. She noted some weakness on the right side also. The symptoms lasted about 3 hours. She has not had any recurrent symptoms. She had a CT of the brain on arrival, which showed a mild amount of small-vessel ischemic changes. CTA showed some noncritical narrowing of the internal carotids as well as the vertebral artery. [place] was patent. Her lab work was all unremarkable. Her ejection fraction was 40% to 45%. She denies any stroke events in the past. PAST MEDICAL HISTORY: As listed above. ALLERGIES: IODINE. SOCIAL HISTORY: No tobacco. FAMILY HISTORY: Noncontributory. REVIEW OF SYSTEMS: Ten-system review of systems is otherwise negative. PHYSICAL EXAMINATION: GENERAL: She is a thin, elderly lady, sitting in bed, in no distress. VITAL SIGNS: Stable. She has been afebrile. HEENT: Pupils equal and reactive. Conjunctivae clear. Oropharynx clear. NECK: Supple. No lymphadenopathy. EXTREMITIES: There is a somewhat partially contracted deformity of the right hand. NEUROLOGIC: She is alert and appropriate. Her speech is fluent and clear. She occasionally has a word-finding difficulty. There is no facial asymmetry noted. She has no fix or drift. No tremor or dysmetria is present. She can walk with the use of a walker. Sensation is intact to touch bilaterally. No abnormal movements are seen. IMAGING STUDIES: EKG shows a paced rhythm. SUMMARY: Elderly lady with a transient expressive aphasia. She is back to her baseline. I would add Plavix, and I would be happy to follow up with her as an outpatient. Job ID: [id number]
[2018-11-13] MEDS ORDERED: Clopidogrel Bisulfate 75 MG TAB PO SCH (18:45)
[2018-11-13] MEDS: Atorvastatin Calcium 10 MG TAB PO SCH (20:26)
--- NOTE | 2018-11-13 22:07 | CON ---
DATE OF CONSULTATION: 11/13/2018 INDICATION FOR CONSULTATION: An 83-year-old female with TIA with a history of coronary artery disease, status post pacemaker insertion. We were asked to see her due to possible arrhythmias as a possible cause of her TIA. HISTORY OF PRESENT ILLNESS: This very unfortunate 83-year-old female who has history of coronary artery disease and vascular disease also, apparently had an episode of a TIA with expressive aphasia, which has improved since she has been admitted to the hospital. She has undergone a CT scan, which showed bilateral internal carotid artery disease, which was rather mild. She also had extensive intracranial internal carotid artery disease, which was not amenable to undergoing surgical correction due to heavy calcifications and stenosis and also intracranial, unable to operate on this. She has had a history of a pacemaker in the past. Interrogation did not show any evidence of significant arrhythmias. She has other risk factors, which include hypertension, history of tobacco abuse, but stopped many years ago, and dyslipidemia. Her bypass surgery was in 2006 and she has remained stable since that time. She denies any cardiac symptoms at this time. She has been followed up in the office on a relatively routine basis and has not been found to have any recent problems. Her CT scan otherwise did not show any acute events. PAST MEDICAL HISTORY: Significant for the coronary artery disease, peripheral vascular disease. She has had a right femoral-popliteal bypass. She has had pacemaker insertion, carpal tunnel syndrome repair. ALLERGIES: SHE IS ALLERGIC TO IODINE. MEDICATIONS: Prior to admission included: 1. Aspirin. 2. Pletal. 3. Hydralazine. 4. Lasix. 5. Simvastatin. 6. Coreg. 7. Norvasc. REVIEW OF SYSTEMS: A 12-point review of systems unremarkable, except what was noted in the history of present illness. She has complained of some posterior neck pain in the past, but this is unlikely and that has anything to do with the carotid stenosis and the TIAs. Otherwise, she denies any GI or or pulmonary complaints or cardiovascular complaints. PHYSICAL EXAMINATION: GENERAL: Reveals an elderly female, who is in no acute distress at this time. She is alert and oriented at this time. She has minimal problems with speech and the family says she still has some mild problems with expressing herself and also thinks that she may have occasionally some slurred speech, but on my examination and my conversation with her, I could not elicit that. HEENT: Shows the head to be normocephalic and atraumatic. Carotid pulses were present. I could not hear any significant bruits. CHEST: Clear to auscultation. CARDIOVASCULAR: Reveals a regular rate and rhythm with normal S1, S2. She has a very soft systolic murmur at the apex. There is well-healed surgical incision over the pacemaker site. ABDOMEN: Soft and nontender at this time. She has positive bowel sounds. EXTREMITIES: No clubbing, cyanosis, or edema. She has pedal pulses which are somewhat difficult to palpate, but are present. Femoral pulses are present. NEUROLOGIC: The patient has some mild perhaps some weakness on the left side, but otherwise does not appear to have any significant gross motor deficits that I can elicit at this time. LABORATORY DATA: Shows hemoglobin of 10.8, WBC of 4.8, hematocrit was 33.9, platelet count was 272,000. Her sodium was 138, BUN of 23, creatinine 1.16. Blood sugar was 151, earlier was 106. Troponin I is negative for any evidence of ischemia or myocardial infarction. Her LDL was 55, HDL was 55. IMPRESSION: 1. Elderly lady with a transient ischemic attack and expressive aphasia, which appears to have improved. She has been seen by Dr. Boone for her carotid artery stenosis and also been seen by Dr. Mensah for neurology. At this time, her cardiac status appears to be stable. It does not appear that she has had any atrial fibrillation. She has been on Pletal at home as well as aspirin. I would suggest that she continue this medication. Also, there was suggestion that we add Plavix. We will certainly add these medications to see how she does. We will need to watch carefully for any further episodes of bleeding. Otherwise, from a cardiac standpoint, she appears to be stable at this time and I do not have any other further recommendations. We will be more than happy to continue to follow her throughout her hospital course, but overall cardiac status appears to be stable at this time. Please note, she has been started on Lovenox since she has been here in the hospital. She is unable to undergo a MRI of the brain due to her previous pacemaker, which is a non MRI compatible device. Her echocardiogram was ordered and we will review the echocardiogram when it becomes available. 2. Thank you very much for asking us to participate in the care of Ms. Kaplan. Job ID: [id number]
[2018-11-14 05:46] VITALS: BMI 21.7
--- NOTE | 2018-11-14 08:40 | PRG ---
DATE OF SERVICE: 11/14/2018 SUBJECTIVE: Ms. Eusebio Awad is doing better. She has been cleared to start take p.o. intake. She feels like she is speaking better. Consults were reviewed. She is not a candidate for any surgical intervention. No evidence of any other workup is necessary other than echocardiogram. Consensus of opinion is to start Plavix. OBJECTIVE: VITAL SIGNS: Temperature 97.4, blood pressure 161/81. LUNGS: Clear. HEART: Reveals a regular rate and rhythm without murmurs, gallops, or rubs. IMPRESSION: Transient ischemic attack versus possible cerebrovascular accident, unable to further delineate this due to inability to perform MRI. PLAN: 1. At this point, the patient probably can hopefully be a candidate for rehab, was discussed with Case Management. 2. Continue current medications. Job ID: [id number]
[2018-11-14] MEDS: Furosemide 40 MG TAB PO SCH (08:57)
[2018-11-14] MEDS: Carvedilol 25 MG TAB PO SCH ×2 (08:57→21:29)
[2018-11-14] MEDS: Aspirin 325 MG TAB PO SCH (08:57)
[2018-11-14] MEDS: hydrALAZINE 25 MG TAB PO SCH ×3 (08:58→21:31)
[2018-11-14] MEDS: Famotidine 20 MG TAB PO SCH (08:59)
[2018-11-14] MEDS ORDERED: Amlodipine 5 MG TAB PO SCH ×2 (09:00→16:45)
[2018-11-14] MEDS ORDERED: Prevnar 13-Val Conj/PF 0.5 ML SYRINGE IM ONE (09:00)
[2018-11-14] MEDS: Clopidogrel Bisulfate 75 MG TAB PO SCH (09:01)
[2018-11-14] MEDS: Cilostazol 100 MG TAB PO SCH ×3 (09:10→21:28)
[2018-11-14] MEDS: Enoxaparin Sodium 80 MG/0.8 ML SYRINGE SC SCH ×2 (09:12→21:32)
[2018-11-14] MEDS: hydrALAZINE 20 MG/ML VIAL SLOW IVP PRN (11:19)
[2018-11-14] MEDS: HYDROcodone/Acetaminophen 7.5/325 mg Tablet PO PRN ×2 (15:57→21:22)
[2018-11-14] MEDS: Atorvastatin Calcium 10 MG TAB PO SCH (21:28)
[2018-11-15] MEDS ORDERED: Amlodipine 5 MG TAB PO SCH (09:00)
[2018-11-15] MEDS: Aspirin 325 MG TAB PO SCH (09:32)
[2018-11-15] MEDS: HYDROcodone/Acetaminophen 7.5/325 mg Tablet PO PRN ×2 (09:34→17:16)
[2018-11-15] MEDS: hydrALAZINE 25 MG TAB PO SCH ×3 (09:35→21:33)
[2018-11-15] MEDS: Carvedilol 25 MG TAB PO SCH ×2 (09:36→21:33)
[2018-11-15] MEDS: Furosemide 40 MG TAB PO SCH (09:37)
[2018-11-15] MEDS: Cilostazol 100 MG TAB PO SCH ×3 (09:37→21:33)
[2018-11-15] MEDS: Clopidogrel Bisulfate 75 MG TAB PO SCH (09:38)
[2018-11-15] MEDS: Enoxaparin Sodium 80 MG/0.8 ML SYRINGE SC SCH ×2 (09:39→21:37)
[2018-11-15] MEDS: Famotidine 20 MG TAB PO SCH (09:39)
[2018-11-15] MEDS: Amlodipine 10 MG TAB PO SCH (11:02)
[2018-11-15] MEDS: Atorvastatin Calcium 10 MG TAB PO SCH (21:33)
--- NOTE | 2018-11-15 23:40 | PRG ---
DATE OF SERVICE: 11/15/2018 HISTORY OF PRESENT ILLNESS: The patient states she has a mild headache with blood pressure peaked at [address] Marcelo did start the patient on amlodipine. We will increase to 10 mg novasc_ the patient is on Coreg and hydralazine 50mg TID Vital signs this morning; temperature of 98.5, pulse is 70, blood pressure this a.m. peaked at 205/84. Creatinine at 1.1 on 11/13/2018. [facility] to be set up for patient on discharge. The patient is not interested in placement. The patient' s blood pressure is improved. Echocardiogram is stable. Would look at potential discharge. Reported that the patient was taken for echo, however, no echo report is available today. PHYSICAL EXAMINATION: GENERAL: The patient is alert and oriented, in no acute distress. HEENT: Head is normocephalic and atraumatic. Extraocular movements are intact. Sclerae are white. Oral mucosa is moist. NECK: Supple. HEART: Regular rate and rhythm at the time of exam. No murmurs were auscultated. LUNGS: Clear to auscultation bilaterally. No rubs or wheezes. ABDOMEN: Soft, nontender. Positive bowel sounds throughout. EXTREMITIES: Lower extremities without cyanosis or edema. NEUROLOGIC: The patient is alert and oriented x3. No focal deficits. Speech is normal. ASSESSMENT AND PLAN: Hypertensive urgency with headache symptoms, titrating blood pressure medications. Once the patient is stable and relatively asymptomatic, I would look for discharge with home health from prior deconditioning. Follow up echo report tomorrow. Job ID: [id number] MTDD
[2018-11-16] MEDS: HYDROcodone/Acetaminophen 7.5/325 mg Tablet PO PRN (05:00)
[2018-11-16] MEDS: hydrALAZINE 20 MG/ML VIAL SLOW IVP PRN (05:01)
[2018-11-16] MEDS: Aspirin 325 MG TAB PO SCH (08:20)
[2018-11-16] MEDS: Cilostazol 100 MG TAB PO SCH ×2 (08:20→15:18)
[2018-11-16] MEDS: Clopidogrel Bisulfate 75 MG TAB PO SCH (08:22)
[2018-11-16] MEDS: Carvedilol 25 MG TAB PO SCH (08:22)
[2018-11-16] MEDS: Amlodipine 10 MG TAB PO SCH (08:23)
[2018-11-16] MEDS: Famotidine 20 MG TAB PO SCH (08:23)
[2018-11-16] MEDS: Furosemide 40 MG TAB PO SCH (08:24)
[2018-11-16] MEDS: hydrALAZINE 25 MG TAB PO SCH ×2 (08:25→15:16)
[2018-11-16] MEDS: Enoxaparin Sodium 80 MG/0.8 ML SYRINGE SC SCH (08:27)
[2018-11-16 15:11] VITALS: TEMP 98
[2018-11-16 15:19] VITALS: BP 152/75
--- NOTE | 2018-11-17 03:22 | DIS ---
DATE OF ADMISSION: 11/12/2018 DATE OF DISCHARGE: 11/16/2018 PCP: Dr. Suresh Doss. PRESENTING COMPLAINT: Expressive aphasia and headache. HOSPITAL COURSE: Patient was diagnosed with hypertensive emergency versus TIA. [place], CT scan performed. Patient has a pacemaker that is noncompatible with MRI. Neurology was consulted for opinion as well as Cardiology. Patient underwent modified barium swallow following dysphagia. Quickly regained faculties of Speech and Swallow, although still has some issues with thin liquids at times. Did not want to seek placement, however, wanted to go home with Home Health. This was initially setup with Case Management on Saturday prior to discharge. However, patient's blood pressure spiked back up into the 200s with patient having headache, titrated patient's medications to better control blood pressure. Patient was increased to Plavix from outpatient regimen for any prevention going forward of stroke. DISCHARGE DIAGNOSES: Include improved hypertensive urgency, resolved TIA, dysphagia, deconditioning, coronary artery disease, ejection fraction showed preserved systolic function. Dr. Marcelo, Dr. Mensah, and Dr. Boone overall consulted for opinion. Speech therapy followed patient. Patient is going to be discharged home on a heart-healthy diet. Discharged with Home Health Physical Therapy, Speech Therapy, nursing. Follow up with Dr. Suresh Doss in one week. DISCHARGE MEDICATIONS: Include; 1. Aspirin 81 mg. 2. Carvedilol 25 mg b.i.d. 3. Pletal 50 mg t.i.d. 4. Hydrocodone p.r.n. 5. Meloxicam 7.5 mg once daily. 6. Simvastatin 20 mg daily. 7. Amlodipine 10 mg daily, new medication. 8. Plavix 75 mg daily, new medication. 9. Furosemide 40 mg daily. 10. Hydralazine increased to 100 mg p.o. t.i.d. DISCHARGE CONDITION: Good. Job ID: [id number]
--- NOTE | 2018-11-17 17:18 | EKG ---
Test Reason : CHEST PAIN Blood Pressure : / mmHG Vent. Rate : 079 BPM Atrial Rate : 079 BPM P-R Int : 150 ms QRS Dur : 142 ms QT Int : 420 ms P-R-T Axes : 064 -50 123 degrees QTc Int : 481 ms Sinus rhythm with Premature atrial complexes Possible Left atrial enlargement Left axis deviation Left bundle branch block Abnormal ECG Confirmed by DAVEY MARTINEZ ([id number]), web editor RAVI SALAS ([id number] on 11/17/2018 5:18:14 PM Referred By: Confirmed By:DAVEY MARTINEZ
== END 2018-11-16 15:36 | disposition home health service (06) | DRG 69 ==
LOC: ERS 19:16 → 2SE 22:12
PROVIDERS: ADMIT Family Medicine; ATTEND Family Medicine
DX: G45.9 Transient cerebral ischemic attack, unspecified (principal); I16.0 Hypertensive urgency; I25.10 Atherosclerotic heart disease of native coronary artery without angina pectoris; I10 Essential (primary) hypertension; E78.5 Hyperlipidemia, unspecified; I73.9 Peripheral vascular disease, unspecified; I65.23 Occlusion and stenosis of bilateral carotid arteries; J30.9 Allergic rhinitis, unspecified; E87.6 Hypokalemia; Z95.0 Presence of cardiac pacemaker; Z87.891 Personal history of nicotine dependence; Z79.82 Long term (current) use of aspirin; Z79.899 Other long term (current) drug therapy; Z95.1 Presence of aortocoronary bypass graft
CPT/HCPCS: 36415; 36416; 70450; 70496; 70498; 74230; 80048; 80053; 80061; 82553; 84484; 85025; 85610; 85730; 93005; 93306; 96365; 96375; J0360; J1200; J1650; J2930; J3480; Q9966; S0028

== ENCOUNTER 2019-04-20 14:24 | Emergency (ER) | payer MEDICARE, MEDICAID ==
[2019-04-20 15:41] LABS: #Eosinphils 0.1 thou/uL (0.0-0.7); #Lymphocytes 0.8 thou/uL (1.20-3.40); #Monocytes 0.5 thou/uL (0.11-0.59); #Neutrophils 4.8 thou/uL (1.40-6.50); %Eosinophils 2.1 % (0.0-10.0); %Lymphocytes 12.6 % (21.0-51.0); %Monocytes 8.1 % (0.0-10.0); %Neutrophils 77.2 % (42.0-75.0); Hemoglobin 10.6 g/dL (12.0-16.0); Mean Corpuscular HGB CONC 32.1 g/dL (32.0-36.0); Mean Corpuscular Hemoglobin 26.1 pg (27.0-31.0); Mean Corpuscular Volume 81.3 fL (78.0-98.0); Mean Platelet Volume 8.4 fL (7.4-10.4); Platelet Count 291 thou/uL (130-400); RBC Distribution Width 14.1 % (11.5-14.5); Red Blood Cell (RBC) Count 4.08 mill/uL (4.20-5.40); White Blood Cell (WBC) Count 6.3 thou/uL (4.8-10.8)
--- NOTE | 2019-04-20 15:41 | RAD ---
EXAM: Chest PA and lateral: HISTORY: Body aches COMPARISON: 09/26/2018 FINDINGS: Stable sternotomy wires and left-sided transvenous pacemaker redemonstrated. Heart: Normal cardiac silhouette Aorta: Atherosclerosis Pulmonary vessels: Normal Costophrenic angles: Costophrenic angles are clear. Lungs: Stable emphysematous change. No masses or consolidation. Pneumothorax: No pneumothorax Osseous structures: No osseous abnormalities IMPRESSION: No acute cardiopulmonary process.
[2019-04-20 15:56] LABS: ALT (SGPT) Less than 7 U/L (8-55); AST (SGOT) 16 U/L (5-34); Alkaline Phosphatase 68 U/L (40-110); Anion Gap 15 mmol/L (10-20); BUN (Urea Nitrogen) 15 mg/dL (9.8-20.1); Bilirubin, Total 0.6 mg/dL (0.2-1.2); Calc. Creatinine Clearance 0 mL/min (70-130); Calcium 9.1 mg/dL (7.8-10.44); Carbon Dioxide 26 mmol/L (23-31); Chloride 101 mmol/L (98-107); Estimated GFR-MDRD 51; Globulin 3.4 g/dL (2.4-3.5); Glucose 91 mg/dL (83-110); Potassium 3.6 mmol/L (3.5-5.1); Protein, Total 7.4 g/dL (6.0-8.3); Sodium 138 mmol/L (136-145)
[2019-04-20 16:14] LABS: Bilirubin Negative (Negative); Blood, Urine Negative (Negative); Clarity Clear (Clear); Glucose, Urine (Dipstick) Normal (Negative); Leukocyte Negative Leu/uL (Negative); Nitrite Negative (Negative); Protein, Urine (Dipstick) Negative (Neg-Trace); Urobilinogen 3 mg/dL (Less than 2)
[2019-04-20] MEDS ORDERED: Baclofen 10 MG TAB PO SCH (16:45)
== END 2019-04-20 18:40 | disposition home or self-care (01) ==
LOC: ERS 14:24
DX: M79.18 Myalgia, other site (principal); M54.2 Cervicalgia; R07.9 Chest pain, unspecified; M54.9 Dorsalgia, unspecified; M79.601 Pain in right arm; M79.602 Pain in left arm; E78.5 Hyperlipidemia, unspecified; E78.00 Pure hypercholesterolemia, unspecified; J44.9 Chronic obstructive pulmonary disease, unspecified; Z79.899 Other long term (current) drug therapy; Z79.82 Long term (current) use of aspirin; Z79.01 Long term (current) use of anticoagulants
CPT/HCPCS: 36415; 71046; 80053; 81003; 82550; 85025; 87804

== ENCOUNTER 2020-09-20 11:56 | Emergency (ER) | payer MEDICARE, OTHER ==
[2020-09-20] MEDS ORDERED: Ketorolac Tromethamine 30 MG/ML VIAL ONE (14:43)
[2020-09-20 16:00] LABS: ALT (SGPT) 29 U/L (8-55); AST (SGOT) 45 U/L (5-34); Albumin 4.3 g/dL (3.4-4.8); Alkaline Phosphatase 87 U/L (40-110); Anion Gap 20 mmol/L (10-20); BUN (Urea Nitrogen) 18 mg/dL (9.8-20.1); Bilirubin, Total 0.4 mg/dL (0.2-1.2); Calc. Creatinine Clearance 0 mL/min (70-130); Calcium 8.9 mg/dL (7.8-10.44); Carbon Dioxide 18 mmol/L (23-31); Chloride 105 mmol/L (98-107); Globulin 4.1 g/dL (2.4-3.5); Glucose 85 mg/dL (83-110); Potassium 6.3 mmol/L (3.5-5.1); Protein, Total 8.4 g/dL (5.8-8.1); Sodium 137 mmol/L (136-145)
[2020-09-20 16:05] LABS: Band 2 % (5-11); Eosinophils 6 % (0-10); Hemoglobin 13.5 g/dL (12.0-16.0); Hypochromia SLIGHT = 6-15 cells (100X) (0-5/hpf); Lymphocytes 31 % (21-51); MDiff Complete? YES; Mean Corpuscular HGB CONC 31.7 g/dL (32.0-36.0); Mean Corpuscular Hemoglobin 26.7 pg (27.0-31.0); Mean Corpuscular Volume 84.2 fL (78.0-98.0); Mean Platelet Volume 8.5 fL (7.4-10.4); Monocytes 7 % (0-10); Neutrophil 50 % (42-75); Platelet Count 217 thou/uL (130-400); Platelet Morphology Comment Appears Adequate; Polychromasia SLIGHT = 2-3 cells (100X) (0-2/hpf); RBC Distribution Width 14.1 % (11.5-14.5); Reactive Lymphocytes 4 % (0-10); Red Blood Cell (RBC) Count 5.07 mill/uL (4.20-5.40); Target Cells MODERATE= 6-15 cells (100X) (0-1/hpf)
[2020-09-20 17:14] LABS: Potassium 4.5 mmol/L (3.5-5.1)
== END 2020-09-20 17:37 | disposition home or self-care (01) ==
LOC: ERS 11:56
DX: R07.81 Pleurodynia (principal); I10 Essential (primary) hypertension; J44.9 Chronic obstructive pulmonary disease, unspecified; E78.5 Hyperlipidemia, unspecified; Z79.82 Long term (current) use of aspirin; Z79.899 Other long term (current) drug therapy
CPT/HCPCS: 36415; 71046; 80053; 85025; 96372; J1885

== ENCOUNTER 2021-02-10 11:18 | Outpatient (CLI) | payer MEDICARE, OTHER | END 2021-02-10 11:19 | disposition home or self-care (01) | LOC: BICRAD 11:18 | PROVIDERS: ATTEND Family Medicine | DX: K57.92 Diverticulitis of intestine, part unspecified, without perforation or abscess without bleeding (principal) | CPT/HCPCS: 72110 ==

== ENCOUNTER 2021-04-02 13:01 | Emergency (ER) | payer MEDICARE, OTHER ==
[~2021-04-02 13:01] MED LIST changes: -ISOVUE-370 76%-LOCM 1 ML ONE; +Iopamidol-370 76% 500 ML 1 ML ONE
[2021-04-02 14:00] LABS: #Eosinphils 0.2 thou/uL (0.0-0.7); #Lymphocytes 0.8 thou/uL (1.20-3.40); #Monocytes 0.5 thou/uL (0.11-0.59); %Basophils 0.4 % (0.0-1.0); %Eosinophils 2.2 % (0.0-10.0); %Lymphocytes 10.9 % (21.0-51.0); %Monocytes 6.6 % (0.0-10.0); Mean Corpuscular HGB CONC 32.1 g/dL (32.0-36.0); Mean Corpuscular Volume 84.2 fL (78.0-98.0); Mean Platelet Volume 8.2 fL (7.4-10.4); Platelet Count 196 thou/uL (130-400); RBC Distribution Width 13.7 % (11.5-14.5); Red Blood Cell (RBC) Count 4.44 mill/uL (4.20-5.40); White Blood Cell (WBC) Count 7.5 thou/uL (4.8-10.8)
[2021-04-02 14:14] LABS: ALT (SGPT) 12 U/L (8-55); AST (SGOT) 19 U/L (5-34); Albumin 3.9 g/dL (3.4-4.8); Alkaline Phosphatase 71 U/L (40-110); Anion Gap 15 mmol/L (10-20); BUN (Urea Nitrogen) 15 mg/dL (9.8-20.1); Bilirubin, Total 0.3 mg/dL (0.2-1.2); Calc. Creatinine Clearance 0 mL/min (70-130); Calcium 8.8 mg/dL (7.8-10.44); Carbon Dioxide 23 mmol/L (23-31); Chloride 105 mmol/L (98-107); Globulin 3.2 g/dL (2.4-3.5); Glucose 99 mg/dL (83-110); Potassium 3.8 mmol/L (3.5-5.1); Protein, Total 7.1 g/dL (5.8-8.1); Sodium 139 mmol/L (136-145)
[2021-04-02] MEDS ORDERED: Morphine 4 MG/ML VIAL ONE (14:19)
[2021-04-02] MEDS ORDERED: diphenhydrAMINE 50 MG/ML VIAL ONE (14:20)
[2021-04-02] MEDS ORDERED: Famotidine 20 MG TAB ONE (14:20)
[2021-04-02] MEDS ORDERED: methylPREDNISolone Sod Succ 40 MG VIAL ONE (14:20)
[2021-04-02] MEDS ORDERED: Famotidine/PF 20 mg/2ml Vial ONE (14:20)
== END 2021-04-02 19:04 | disposition home or self-care (01) ==
LOC: ERS 13:01
DX: M54.2 Cervicalgia (principal); I10 Essential (primary) hypertension; E78.5 Hyperlipidemia, unspecified; J44.9 Chronic obstructive pulmonary disease, unspecified; Z79.82 Long term (current) use of aspirin; Z79.899 Other long term (current) drug therapy
CPT/HCPCS: 36415; 70498; 71045; 80053; 84484; 85025; 93005; 96374; 96375; J1200; J2270; J2920; Q9967; S0028

== ENCOUNTER 2022-03-26 01:46 | Inpatient (IN) | payer OTHER ==
[2022-03-26] MEDS ORDERED: methylPREDNISolone Sod Succ/PF 125 MG/2 ML VIAL ONE (02:01)
[2022-03-26] MEDS ORDERED: Aspirin Chewable 81 MG TAB ONE (02:12)
[2022-03-26 02:16] LABS: #Basophils 0.1 thou/uL (0.0-0.2); #Eosinphils 0.1 thou/uL (0.0-0.7); #Monocytes 0.3 thou/uL (0.11-0.59); %Basophils 0.9 % (0.0-1.0); %Eosinophils 2.1 % (0.0-10.0); %Lymphocytes 18.7 % (21.0-51.0); %Monocytes 5.5 % (0.0-10.0); %Neutrophils 72.7 % (42.0-75.0); Hemoglobin 12.4 g/dL (12.0-16.0); Mean Corpuscular HGB CONC 31.6 g/dL (32.0-36.0); Mean Corpuscular Hemoglobin 27.4 pg (27.0-31.0); Mean Corpuscular Volume 86.7 fl (78.0-98.0); Mean Platelet Volume 8.8 fL (7.4-10.4); Platelet Count 222 10x3/uL (130-400); RBC Distribution Width 14.4 % (11.5-14.5); Red Blood Cell (RBC) Count 4.53 mill/uL (4.20-5.40); White Blood Cell (WBC) Count 5.5 10x3/uL (4.8-10.8)
[2022-03-26] MEDS ORDERED: cefTRIAXone\\ROCEPHIN 1 GM VIAL ONE (02:37)
[2022-03-26 02:38] LABS: ALT (SGPT) 60 U/L (8-55); AST (SGOT) 111 U/L (5-34); Albumin 4.1 g/dL (3.4-4.8); Alkaline Phosphatase 102 U/L (40-110); Anion Gap 17 mmol/L (10-20); BUN (Urea Nitrogen) 18 mg/dL (9.8-20.1); Bilirubin, Total 0.6 mg/dL (0.2-1.2); Calc. Creatinine Clearance 0 mL/min (70-130); Calcium 9.2 mg/dL (7.8-10.44); Carbon Dioxide 22 mmol/L (23-31); Chloride 105 mmol/L (98-107); Estimated GFR 49; Globulin 3.7 g/dL (2.4-3.5); Glucose 98 mg/dL (83-110); Potassium 3.9 mmol/L (3.5-5.1); Protein, Total 7.8 g/dL (5.8-8.1); Sodium 140 mmol/L (136-145)
[2022-03-26 02:51] LABS: SARS-CoV-2 NAA Rapid Test Not Detected (NotDetected)
[2022-03-26] MEDS ORDERED: Acetaminophen 325 MG TAB PO PRN (04:21)
[2022-03-26] MEDS ORDERED: Ondansetron PF 4 MG/2 ML Vial IVP PRN (04:21)
[2022-03-26] MEDS ORDERED: Furosemide 20 MG/2 ML VIAL SLOW IVP SCH (04:30)
[2022-03-26] MEDS ORDERED: Azithromycin 500 MG VIAL ONE (04:46)
[2022-03-26] MEDS ORDERED: Furosemide 20 MG/2 ML VIAL ONE ×3 (04:51→16:35)
[2022-03-26 05:16] LABS: Troponin I 0.012 ng/mL (< 0.028)
[2022-03-26] MEDS: Furosemide 20 MG/2 ML VIAL SLOW IVP SCH ×2 (06:45→16:34)
[2022-03-26 08:35] LABS: Troponin I 0.018 ng/mL (< 0.028)
[2022-03-26] MEDS ORDERED: Enoxaparin Sodium 40 MG/0.4 ML SYRINGE ONE (08:51)
[2022-03-26] MEDS ORDERED: Clopidogrel Bisulfate 75 MG TAB ONE (08:51)
[2022-03-26] MEDS ORDERED: methylPREDNISolone Sod Succ 40 MG VIAL ONE (08:51)
[2022-03-26] MEDS ORDERED: hydrALAZINE 25 MG TAB ONE (08:51)
[2022-03-26] MEDS ORDERED: Amlodipine 5 MG TAB ONE (08:51)
[2022-03-26] MEDS ORDERED: Amlodipine 5 MG TAB PO SCH (09:00)
[2022-03-26] MEDS ORDERED: Clopidogrel Bisulfate 75 MG TAB PO SCH (09:00)
[2022-03-26] MEDS ORDERED: hydrALAZINE 25 MG TAB PO SCH (09:00)
[2022-03-26] MEDS: Enoxaparin Sodium 40 MG/0.4 ML SYRINGE SC SCH (09:22)
[2022-03-26] MEDS: methylPREDNISolone Sod Succ 40 MG VIAL IVP SCH ×2 (09:23→21:26)
[2022-03-26] MEDS ORDERED: HYDROcodone/Acetaminophen 10/325 mg Tablet ONE (09:40)
[2022-03-26] MEDS: HYDROcodone/Acetaminophen 10/325 mg Tablet PO PRN ×2 (09:43→21:33)
[2022-03-26 17:07] VITALS: BMI 19.8
[2022-03-26] MEDS ORDERED: FLU VACC QS2022-23(65YR UP)/PF 240 MCG/0.7 ML SYRINGE IM ONE (17:15)
[2022-03-26] MEDS: Cilostazol 100 MG TAB PO SCH ×2 (17:27→21:25)
[2022-03-26] MEDS: hydrALAZINE 25 MG TAB PO SCH ×2 (17:27→21:25)
[2022-03-26] MEDS ORDERED: Atorvastatin Calcium 10 MG TAB PO SCH (21:00)
[2022-03-26] MEDS: Carvedilol 25 MG TAB PO SCH (21:25)
[2022-03-26] MEDS: Atorvastatin Calcium 10 MG TAB PO SCH (21:25)
[2022-03-27] MEDS: cefTRIAXone\\ROCEPHIN 1 GM in Sodium Chloride 0.9% 100 ML IVPB SCH (03:57)
[2022-03-27] MEDS ORDERED: Cepastat Lozenges 1 LOZ PO PRN (04:56)
[2022-03-27 05:03] LABS: White Blood Cell (WBC) Count 4.6 10x3/uL (4.8-10.8)
[2022-03-27 05:04] LABS: #Lymphocytes 0.6 thou/uL (1.20-3.40); #Monocytes 0.2 thou/uL (0.11-0.59); #Neutrophils 3.7 thou/uL (1.40-6.50); %Basophils 0.4 % (0.0-1.0); %Eosinophils 0.3 % (0.0-10.0); %Lymphocytes 13.7 % (21.0-51.0); %Neutrophils 80.5 % (42.0-75.0); Mean Corpuscular HGB CONC 31.5 g/dL (32.0-36.0); Mean Corpuscular Hemoglobin 27.1 pg (27.0-31.0); Mean Corpuscular Volume 85.9 fl (78.0-98.0); Mean Platelet Volume 9.4 fL (7.4-10.4); Platelet Count 196 10x3/uL (130-400); RBC Distribution Width 14.5 % (11.5-14.5); Red Blood Cell (RBC) Count 4.44 mill/uL (4.20-5.40)
[2022-03-27 05:20] LABS: Anion Gap 16 mmol/L (10-20); BUN (Urea Nitrogen) 19 mg/dL (9.8-20.1); Calc. Creatinine Clearance 42 mL/min (70-130); Calcium 8.9 mg/dL (7.8-10.44); Carbon Dioxide 19 mmol/L (23-31); Chloride 105 mmol/L (98-107); Estimated GFR 61; Glucose 121 mg/dL (83-110); Magnesium 1.9 mg/dL (1.6-2.6); Potassium 4.2 mmol/L (3.5-5.1); Sodium 136 mmol/L (136-145)
[2022-03-27] MEDS: Azithromycin 500 MG in Sodium Chloride 0.9% 250 ML 250 ML IVPB SCH (05:56)
[2022-03-27] MEDS: Furosemide 20 MG/2 ML VIAL SLOW IVP SCH ×2 (06:04→15:38)
[2022-03-27] MEDS: HYDROcodone/Acetaminophen 10/325 mg Tablet PO PRN (06:19)
[2022-03-27] MEDS ORDERED: Aspirin 81 mg Enteric Coated Tablet PO SCH (09:00)
[2022-03-27] MEDS: Enoxaparin Sodium 40 MG/0.4 ML SYRINGE SC SCH (09:47)
[2022-03-27] MEDS: hydrALAZINE 25 MG TAB PO SCH ×3 (09:47→21:26)
[2022-03-27] MEDS: Cilostazol 100 MG TAB PO SCH ×3 (09:48→21:26)
[2022-03-27] MEDS: Amlodipine 10 MG TAB PO SCH (09:49)
[2022-03-27] MEDS: Aspirin Chewable 81 MG TAB PO SCH (09:50)
[2022-03-27] MEDS: Clopidogrel Bisulfate 75 MG TAB PO SCH (09:50)
[2022-03-27] MEDS: Carvedilol 25 MG TAB PO SCH ×2 (09:50→21:26)
[2022-03-27] MEDS: methylPREDNISolone Sod Succ 40 MG VIAL IVP SCH ×2 (09:50→21:26)
[2022-03-27] MEDS: Atorvastatin Calcium 10 MG TAB PO SCH (21:26)
[2022-03-28] MEDS: cefTRIAXone\\ROCEPHIN 1 GM in Sodium Chloride 0.9% 100 ML IVPB SCH (02:47)
[2022-03-28] MEDS: Azithromycin 500 MG in Sodium Chloride 0.9% 250 ML 250 ML IVPB SCH (03:55)
[2022-03-28] MEDS: HYDROcodone/Acetaminophen 10/325 mg Tablet PO PRN ×2 (04:03→16:03)
[2022-03-28] MEDS ORDERED: Benzonatate 100 MG CAP PO PRN (04:07)
[2022-03-28 04:43] LABS: #Lymphocytes 0.8 thou/uL (1.20-3.40); #Monocytes 0.2 thou/uL (0.11-0.59); #Neutrophils 6.7 thou/uL (1.40-6.50); %Basophils 0.1 % (0.0-1.0); %Monocytes 2.5 % (0.0-10.0); %Neutrophils 87.3 % (42.0-75.0); Mean Corpuscular HGB CONC 29.9 g/dL (32.0-36.0); Mean Corpuscular Hemoglobin 25.9 pg (27.0-31.0); Mean Corpuscular Volume 86.7 fl (78.0-98.0); Mean Platelet Volume 8.9 fL (7.4-10.4); Platelet Count 238 10x3/uL (130-400); RBC Distribution Width 14.8 % (11.5-14.5); Red Blood Cell (RBC) Count 4.26 mill/uL (4.20-5.40); White Blood Cell (WBC) Count 7.6 10x3/uL (4.8-10.8)
[2022-03-28 05:09] LABS: Anion Gap 15 mmol/L (10-20); BUN (Urea Nitrogen) 26 mg/dL (9.8-20.1); Calc. Creatinine Clearance 31 mL/min (70-130); Calcium 8.6 mg/dL (7.8-10.44); Carbon Dioxide 22 mmol/L (23-31); Chloride 107 mmol/L (98-107); Estimated GFR 43; Glucose 151 mg/dL (83-110); Potassium 3.5 mmol/L (3.5-5.1); Sodium 140 mmol/L (136-145)
[2022-03-28] MEDS: Furosemide 20 MG/2 ML VIAL SLOW IVP SCH ×2 (05:22→16:02)
[2022-03-28] MEDS: GUAIFENESIN SF SOLN 200 MG/10 ML UDCUP PO PRN ×2 (05:22→16:08)
[2022-03-28] MEDS: Amlodipine 10 MG TAB PO SCH (10:11)
[2022-03-28] MEDS: hydrALAZINE 25 MG TAB PO SCH ×2 (10:11→16:02)
[2022-03-28] MEDS: Carvedilol 25 MG TAB PO SCH (10:12)
[2022-03-28] MEDS: Enoxaparin Sodium 40 MG/0.4 ML SYRINGE SC SCH (10:12)
[2022-03-28] MEDS: Aspirin Chewable 81 MG TAB PO SCH (10:12)
[2022-03-28] MEDS: Clopidogrel Bisulfate 75 MG TAB PO SCH (10:12)
[2022-03-28] MEDS: Cilostazol 100 MG TAB PO SCH ×2 (10:12→16:02)
[2022-03-28] MEDS: methylPREDNISolone Sod Succ 40 MG VIAL IVP SCH (10:12)
[2022-03-28] MEDS ORDERED: Milk Of Magnesia 30 ML UDCUP PO PRN (10:23)
[2022-03-28 16:36] VITALS: BP 135/59; TEMP 97.6
== END 2022-03-28 18:30 | disposition home or self-care (01) | DRG 291 ==
LOC: ERS 01:46 → ERHOLD 03:59 → 2NO 16:43
PROVIDERS: ADMIT Hospitalist; ATTEND Hospitalist
DX: I11.0 Hypertensive heart disease with heart failure (principal); I50.33 Acute on chronic diastolic (congestive) heart failure; J96.01 Acute respiratory failure with hypoxia; J44.1 Chronic obstructive pulmonary disease with (acute) exacerbation; E87.20 Acidosis, unspecified; Z20.822 Contact with and (suspected) exposure to COVID-19; I25.10 Atherosclerotic heart disease of native coronary artery without angina pectoris; G89.29 Other chronic pain; M54.50 Low back pain, unspecified; Z91.041 Radiographic dye allergy status; Z79.899 Other long term (current) drug therapy; Z79.82 Long term (current) use of aspirin; Z79.02 Long term (current) use of antithrombotics/antiplatelets; Z95.828 Presence of other vascular implants and grafts; Z83.3 Family history of diabetes mellitus; Z87.891 Personal history of nicotine dependence
CPT/HCPCS: 36415; 71045; 80048; 80053; 83605; 83735; 83880; 84484; 85025; 93005; J0456; J0696; J1650; J1940; J2920; J2930; J3490; J7050; J7620

== ENCOUNTER 2022-07-05 18:48 | Inpatient (IN) | payer OTHER ==
[2022-07-05 19:20] LABS: Actual Bicarbonate (HCO3v) 21 mEq/L (22-28); Analyzer IN Cardio ER; Base Excess -3.3 mEq/L (-2.0 to +3.0); Calcium, Ionized (venous) 1.07 mmol/L (1.16-1.32); Chloride (VBG) 102 mmol/L (98-106); Hemoglobin (Hb) 12.4 g/dL (11.7-16.1); Potassium (VBG) 3.75 mmol/L (3.70-5.30); Sodium 133.7 mmol/L (133-146); pH (venous) 7.38 (7.32-7.43)
[2022-07-05 19:44] LABS: Hemoglobin 11.6 g/dL (12.0-16.0); Mean Corpuscular HGB CONC 31.4 g/dL (32.0-36.0); Mean Corpuscular Hemoglobin 27.5 pg (27.0-31.0); Mean Corpuscular Volume 87.5 fl (78.0-98.0); Mean Platelet Volume 9.5 fL (7.4-10.4); Platelet Count 187 10x3/uL (130-400); RBC Distribution Width 14.4 % (11.5-14.5); Red Blood Cell (RBC) Count 4.23 mill/uL (4.20-5.40)
[2022-07-05 20:09] LABS: ALT (SGPT) 10 U/L (8-55); AST (SGOT) 18 U/L (5-34); Albumin 3.9 g/dL (3.4-4.8); Alkaline Phosphatase 69 U/L (40-110); Anion Gap 14 mmol/L (10-20); BUN (Urea Nitrogen) 14 mg/dL (9.8-20.1); Bilirubin, Total 0.4 mg/dL (0.2-1.2); Calc. Creatinine Clearance 0 mL/min (70-130); Carbon Dioxide 24 mmol/L (23-31); Chloride 105 mmol/L (98-107); Estimated GFR 48; Globulin 2.9 g/dL (2.4-3.5); Glucose 97 mg/dL (83-110); Protein, Total 6.8 g/dL (5.8-8.1); Sodium 139 mmol/L (136-145)
[2022-07-05 20:12] LABS: Band 2 % (5-11); Lymphocytes 32 % (21-51); MDiff Complete? YES; Monocytes 6 % (0-10); Neutrophil 60 % (42-75); Schistocytes SLIGHT = 2-5 cells (100X) (0-1/hpf); Target Cells SLIGHT = 2-5 cells (100X) (0-1/hpf); White Blood Cell (WBC) Count 3.4 10x3/uL (4.8-10.8)
[2022-07-05] MEDS ORDERED: Acetaminophen 500 MG TAB ONE (20:17)
[2022-07-05] MEDS ORDERED: Furosemide 40 MG/4 ML VIAL ONE (22:19)
[2022-07-05] MEDS ORDERED: Ipratropium/Albuterol 3 ML NEB NEB PRN (23:00)
[2022-07-05] MEDS ORDERED: Ondansetron PF 4 MG/2 ML Vial IVP PRN (23:00)
[2022-07-05] MEDS ORDERED: Senokot S 8.6-50 MG TAB PO PRN (23:00)
[2022-07-05] MEDS ORDERED: Ondansetron ODT 4 MG TAB PO PRN (23:00)
[2022-07-05] MEDS ORDERED: Acetaminophen 325 MG TAB PO PRN (23:00)
[2022-07-05] MEDS ORDERED: Calcium Carbonate 500 MG ChewTAB PO PRN (23:00)
[2022-07-06 01:02] VITALS: BMI 22.1
[2022-07-06 04:46] LABS: Anion Gap 12 mmol/L (10-20); BUN (Urea Nitrogen) 13 mg/dL (9.8-20.1); Calc. Creatinine Clearance 46 mL/min (70-130); Calcium 8.7 mg/dL (7.8-10.44); Carbon Dioxide 25 mmol/L (23-31); Chloride 104 mmol/L (98-107); Estimated GFR 59; Glucose 86 mg/dL (83-110); Hemoglobin 11.1 g/dL (12.0-16.0); Mean Corpuscular HGB CONC 32.2 g/dL (32.0-36.0); Mean Corpuscular Hemoglobin 28.5 pg (27.0-31.0); Mean Corpuscular Volume 88.3 fl (78.0-98.0); Mean Platelet Volume 9.7 fL (7.4-10.4); Platelet Count 165 10x3/uL (130-400); Potassium 3.5 mmol/L (3.5-5.1); RBC Distribution Width 14.4 % (11.5-14.5); Sodium 137 mmol/L (136-145); White Blood Cell (WBC) Count 3.1 10x3/uL (4.8-10.8)
[2022-07-06 05:13] LABS: Band 1 % (5-11); Eosinophils 1 % (0-10); Lymphocytes 24 % (21-51); MDiff Complete? YES; Monocytes 6 % (0-10); Neutrophil 68 % (42-75)
[2022-07-06 06:11] LABS: SARS-CoV-2 NAA Rapid Test Not Detected (NotDetected)
[2022-07-06] MEDS: Furosemide 20 MG/2 ML VIAL SLOW IVP SCH ×2 (06:21→14:53)
[2022-07-06] MEDS: Mometasone 100 MCG/Formoterol 5 MCG 120 PUFF INHALER INH SCH ×2 (07:49→14:54)
[2022-07-06] MEDS ORDERED: Albuterol 200 PUFF (6.7GM INHALER) INH PRN (08:19)
[2022-07-06 08:22] VITALS: TEMP 97.6
[2022-07-06] MEDS ORDERED: Cilostazol 100 MG TAB PO SCH (09:00)
[2022-07-06] MEDS ORDERED: Amlodipine 5 MG TAB PO SCH (09:00)
[2022-07-06] MEDS ORDERED: Clopidogrel Bisulfate 75 MG TAB PO SCH (09:00)
[2022-07-06] MEDS ORDERED: Carvedilol 25 MG TAB PO SCH ×2 (09:00)
[2022-07-06] MEDS ORDERED: predniSONE 20 MG TAB PO SCH (13:00)
[2022-07-06] MEDS ORDERED: Ipratropium/Albuterol 3 ML NEB IPPB SCH (13:15)
[2022-07-06] MEDS ORDERED: Potassium Chloride 20 MEQ TAB PO SCH (13:15)
[2022-07-06 14:25] VITALS: BP 111/59
[2022-07-06] MEDS ORDERED: Atorvastatin Calcium 10 MG TAB PO SCH (21:00)
[2022-07-06] MEDS ORDERED: Simvastatin 20 MG TAB PO SCH (21:00)
[2022-07-07] MEDS ORDERED: predniSONE 20 MG TAB PO SCH (08:00)
== END 2022-07-06 18:20 | disposition expired | DRG 291 ==
LOC: ERS 18:48 → 2NO 22:47 → OBSVTOIN 07-06 11:39
PROVIDERS: ADMIT Internal Medicine; ATTEND Internal Medicine
PROC: 5A12012 Performance of Cardiac Output, Single, Manual (ICD-10-PCS; principal; 2022-07-06)
PROC: 0BH17EZ Insertion of Endotracheal Airway into Trachea, Via Natural or Artificial Opening (ICD-10-PCS; 2022-07-06)
PROC: 3E033XZ Introduction of Vasopressor into Peripheral Vein, Percutaneous Approach (ICD-10-PCS; 2022-07-06)
PROC: 4A133R1 Monitoring of Arterial Saturation, Peripheral, Percutaneous Approach (ICD-10-PCS; 2022-07-06)
DX: I11.0 Hypertensive heart disease with heart failure (principal); I50.33 Acute on chronic diastolic (congestive) heart failure; J96.21 Acute and chronic respiratory failure with hypoxia; J44.1 Chronic obstructive pulmonary disease with (acute) exacerbation; I46.9 Cardiac arrest, cause unspecified; Z20.822 Contact with and (suspected) exposure to COVID-19; I25.10 Atherosclerotic heart disease of native coronary artery without angina pectoris; E78.5 Hyperlipidemia, unspecified; G89.29 Other chronic pain; M54.50 Low back pain, unspecified; Z91.041 Radiographic dye allergy status; Z79.899 Other long term (current) drug therapy; Z79.02 Long term (current) use of antithrombotics/antiplatelets; Z79.51 Long term (current) use of inhaled steroids; Z95.828 Presence of other vascular implants and grafts; Z95.0 Presence of cardiac pacemaker; Z83.3 Family history of diabetes mellitus; Z87.891 Personal history of nicotine dependence; Z99.81 Dependence on supplemental oxygen
CPT/HCPCS: 36415; 71045; 80048; 80053; 82805; 83880; 84484; 85025; 93005; 93306; 94640; 96374; 96376; G0378; J1940; J7620; U0002